=== PATIENT | female | born 1955 | race Caucasian/White ===

== ENCOUNTER 2017-03-13 09:46 | Outpatient (CLI) | payer OTHER ==
--- NOTE | 2017-03-28 13:55 | Mammography Report ---
DIGITAL BILATERAL SCREENING MAMMOGRAM: 03/13/2017 CLINICAL INDICATION: A 61-year-old for screening. COMPARISON: 08/2007, 08/2006 TECHNIQUE: Routine CC and MLO projections were obtained of the breasts; also bilateral laterally exaggerated craniocaudal views were obtained of the breasts. FINDINGS: Parenchymal tissue within both breasts is heterogeneously dense, which may lower the sensitivity of mammography; however, there are no dominant masses, suspicious microcalcifications, or secondary signs of malignancy. In comparison to the previous studies, there are no significant changes. ASSESSMENT: NO MAMMOGRAPHIC EVIDENCE OF MALIGNANCY. NO SIGNIFICANT INTERVAL CHANGES. RECOMMENDATION: Screening mammography is recommended annually. BIRADS category 1 - negative. STANDARD QUALIFYING STATEMENTS 1. This examination was reviewed with the aid of Computed Aided Detection (CAD). 2. A negative x-ray report should not delay biopsy if a dominant or clinically suspicious mass is present. More than 5% of cancers are not identified by x-ray. 3. Dense breasts may obscure an underlying neoplasm. jeanna TD: 03/25/2017 17:29 HANG
== END 2017-03-13 09:47 | disposition home or self-care (01) ==
LOC: DI 09:46
PROVIDERS: ATTEND Physician Assistant
DX: Z12.31 Encounter for screening mammogram for malignant neoplasm of breast (principal)
CPT/HCPCS: 77067

== ENCOUNTER 2018-03-20 08:28 | Outpatient (CLI) | payer OTHER ==
--- NOTE | 2018-03-24 11:43 | Mammography Report ---
Reason: SCREENING MAMMO Procedure Date: 03/20/2018 Accession Number: [id number] / [id number] Procedure: VEENA - Screening Mammo w/Willian CPT Code: FULL RESULT: EXAM: Screening Mammo w/Willian DATE: 03/20/2018 8:56 AM CLINICAL HISTORY: Screening. No reported personal or family history of breast cancer TECHNIQUE: Bilateral CC and MLO views were obtained. COMPARISON: 08/08/2015 through 11/09/2012 FINDINGS: The breasts demonstrate heterogeneously dense fibroglandular parenchyma bilaterally. Bilateral breasts: There are no suspicious masses, calcifications or areas of distortion. IMPRESSION: Negative examination RECOMMENDATION: Routine annual screening unless otherwise clinically indicated. BI-RADS CATEGORY 1: Negative STANDARD QUALIFYING STATEMENTS: 1. This examination was not reviewed with the aid of Computer-Aided Detection (CAD). 2. A negative or benign imaging report should not preclude biopsy if clinically suspicious findings are present. 3. Dense breasts may obscure an underlying neoplasm. 4. This examination was reviewed with the aid of 3D breast imaging (tomosynthesis).
== END 2018-03-20 08:29 | disposition home or self-care (01) ==
LOC: DI 08:28
DX: Z12.31 Encounter for screening mammogram for malignant neoplasm of breast (principal)
CPT/HCPCS: 77063; 77067

== ENCOUNTER 2019-06-04 15:09 | Outpatient (CLI) | payer MEDICARE ==
--- NOTE | 2019-06-07 09:54 | Mammography Report ---
Reason: ROUTINE MAMMO Procedure Date: 06/04/2019 Accession Number: [id number] / [id number] Procedure: VEENA - Screening Mammo w/Willian CPT Code: Final Report FULL RESULT: EXAM: Screening Mammo w/Willian DATE: 06/04/2019 3:31 PM CLINICAL HISTORY: Screening encounter. TECHNIQUE: (B) - Bilateral CC, laterally exaggerated CC, MLO views were obtained. COMPARISON: 03/20/2018 through 03/13/2017. PARENCHYMAL PATTERN: (D) - The breast(s) demonstrate(s) heterogeneously dense fibroglandular parenchyma. FINDINGS: There are no suspicious masses, calcifications, or areas of distortion. IMPRESSION: Negative examination. BI-RADS category 1. RECOMMENDATION: (ANNUAL) - Recommend routine annual screening mammography. BI-RADS CATEGORY: (1) - Negative. STANDARD QUALIFYING STATEMENTS: 1. This examination was not reviewed with the aid of Computer-Aided Detection (CAD). 2. A negative or benign imaging report should not preclude biopsy if clinically suspicious findings are present. 3. Dense breasts may obscure an underlying neoplasm. 4. This examination was reviewed with the aid of 3D breast imaging (tomosynthesis).
== END 2019-06-04 15:10 | disposition home or self-care (01) ==
LOC: DI 15:09
PROVIDERS: ATTEND Physician Assistant
DX: Z12.31 Encounter for screening mammogram for malignant neoplasm of breast (principal)
CPT/HCPCS: 77063; 77067

== ENCOUNTER 2019-09-13 07:00 | Outpatient (CLI) | payer MEDICARE | END 2019-09-13 23:59 | disposition home or self-care (01) | LOC: LAB.R 07:00 | PROVIDERS: ATTEND Physician Assistant | DX: Z20.828 Contact with and (suspected) exposure to other viral communicable diseases (principal); Z76.89 Persons encountering health services in other specified circumstances | CPT/HCPCS: 81599 ==

== ENCOUNTER 2019-09-23 10:04 | Outpatient (CLI) | payer MEDICARE ==
--- NOTE | 2019-09-23 15:30 | DEXA Report ---
Reason: ENCOUNTER FOR SCREENING FOR OSTEOPOROSIS Procedure Date: 09/23/2019 Accession Number: [id number] / [id number] Procedure: DEX - Dexa Spine and/or Hip CPT Code: Final Report FULL RESULT: PROCEDURE: Dexa Spine and/or Hip INDICATIONS: ENCOUNTER FOR SCREENING FOR OSTEOPOROSIS TECHNIQUE: Dual energy x-ray absorptiometry (DXA) was performed on a Stampt System. Regions measured are the AP Spine, femoral neck, and if needed forearm. COMPARISON: None. FINDINGS: Lumbar Spine: Bone Mineral Density 1.035 g/cm/cm,T score -1.2, osteopenia. Left Hip: Bone Mineral Density 0.686 g/cm/cm,T score -2.6, osteoporosis. Left Femoral Neck: Bone Mineral Density 0.712 g/cm/cm, T score -2.3, osteopenia (T score greater or equal to -1.0: NORMAL) (T score from -1.1 to -2.4: OSTEOPENIA) (T score less than or equal to -2.5 to: OSTEOPOROSIS) Impression: 1. Osteoporosis of the left hip with severe osteopenia of the left femoral neck. Patients with diagnosis of osteoporosis or osteopenia should have regular bone mineral density assessment. For those eligible for Medicare, routine testing is allowed once every 2 years. Testing frequency can be increased for patients who have rapidly progressing disease or for those who are receiving medical therapy to restore bone mass. Reviewed by: Kalina Solis MD on 09/23/2019 3:28 PM PDT Approved by: Kalina Solis MD on 09/23/2019 3:28 PM PDT Station ID: [id number]
== END 2019-09-23 10:05 | disposition home or self-care (01) ==
LOC: DI 10:04
PROVIDERS: ATTEND Nurse Practitioner Family
DX: Z13.820 Encounter for screening for osteoporosis (principal); M81.0 Age-related osteoporosis without current pathological fracture
CPT/HCPCS: 77080

== ENCOUNTER 2020-04-11 21:13 | Outpatient (CLI) | payer MEDICARE, OTHER | END 2020-04-11 21:14 | disposition home or self-care (01) | LOC: COV 21:13 | PROVIDERS: ATTEND Family Medicine | DX: R05 Cough (principal); R53.83 Other fatigue; R07.0 Pain in throat; R09.81 Nasal congestion; J34.89 Other specified disorders of nose and nasal sinuses; Z20.822 Contact with and (suspected) exposure to COVID-19 ==

== ENCOUNTER 2021-01-11 07:49 | Outpatient (CLI) | payer MEDICARE, OTHER ==
--- NOTE | 2021-01-12 07:45 | Mammography Report ---
BILATERAL DIGITAL SCREENING MAMMOGRAM 3D/2D: 01/11/2021 CLINICAL: Routine screening. Comparison is made to exams dated: 06/04/2019 mammogram, 03/13/2017 mammogram, and 03/20/2018 mammogra m - [facility]. The tissue of both breasts is heterogeneously dense. This may lowe r the sensitivity of mammography. No significant masses, calcifications, or other findings are seen in either breast. There has been no significant interval change. IMPRESSION: NEGATIVE There is no mammographic evidence of malignancy. A 1 year screening mammogram is recommended. This exam was interpreted at Station ID: [id number]. NOTE: For mammograms, a report in lay terms will be sent to the patient. Approximately 15% of breast malignancies will not be visualized mammographically. In the management of a palpable breast mass, a negative mammogram must not discourage biopsy of a clinically suspicious lesion. Electronically Signed By: Levi Hastings M.D. ar/penrad:01/11/2021 16:34:22 ACR BI-RADS Category 1: Negative 3341F PARENCHYMAL PATTERN: (D) - The breast(s) demonstrate(s) heterogeneously dense fibroglandular haven dominique. BI-RADS CATEGORY: (1) - 1 RECOMMENDATION: (ANNUAL) - Recommend routine annual screening mammography. [id number] 1 year screening LATERALITY: (B)
== END 2021-01-11 07:50 | disposition home or self-care (01) ==
LOC: DI 07:49
DX: Z12.31 Encounter for screening mammogram for malignant neoplasm of breast (principal)

== ENCOUNTER 2023-02-24 14:12 | Outpatient (CLI) | payer MEDICARE, OTHER ==
--- NOTE | 2023-02-26 15:35 | Mammography Report ---
BILATERAL DIGITAL SCREENING MAMMOGRAM 3D/2D: 02/24/2023 CLINICAL: Routine screening. Comparison is made to exams dated: 01/11/2021 mammogram, 06/04/2019 mammogram, 03/20/2018 mammogram, 1 05/14/2016 mammogram, and 08/08/2015 mammogram - [facility]. Both breasts are heterogeneously dense, which may obscure small masses (category c / 51-75% glandular tissue). No significant masses, calcifications, or other findings are seen in either breast. There has been no significant interval change. IMPRESSION: NEGATIVE There is no mammographic evidence of malignancy. A 1 year screening mammogram is recommended. Based on the Tyrer Cuzick model (a risk assessment model) the patients lifetime risk is 9.7% and her 10 year risk is 5.4%. According to the ACR, ACS, and NCCN guidelines, an annual breast MRI exam korey g with mammogram is recommended if the patients lifetime risk is 20% or greater. This exam was interpreted at Station ID: [id number]. NOTE: For mammograms, a report in lay terms will be sent to the patient. Approximately 15% of breast malignancies will not be visualized mammographically. In the management of a palpable breast mass, a negative mammogram must not discourage biopsy of a clinically suspicious lesion. Electronically Signed By: Shannon Wan M.D., PH.D eb/cristian:02/25/2023 22:56:30 letter sent: No_Letter ACR BI-RADS Category 1: Negative 3341F PARENCHYMAL PATTERN: (D) - The breast(s) demonstrate(s) heterogeneously dense fibroglandular haven dominique. BI-RADS CATEGORY: (1) - 1 Mammogram [id number] 1 year screening LATERALITY: (B)
== END 2023-02-24 14:13 | disposition home or self-care (01) ==
LOC: DI 14:12
DX: Z12.31 Encounter for screening mammogram for malignant neoplasm of breast (principal); R92.333 Mammographic heterogeneous density, bilateral breasts